=== PATIENT | female | born 1990 | race Caucasian/White ===

== ENCOUNTER 2018-01-05 10:36 | Emergency (ER) | payer SELFPAY ==
[~2018-01-05] VITALS: Ht 152.4 cm; Wt 54.5 kg
[~2018-01-05 10:36] MED LIST: CEPHALEXIN500 M1 PO; FLEXERIL 1010 MG/TAB PO; LORTAB 2.5/5001 TAB PO; LORTAB 5/500 501 TAB PO; MOTRIN 600600 MG/TAB PO; NO HOME MEDICATIONS; NORCO 325 MG-7.1 TAB PO; PRENATAL1 TA1 PO; REGLAN 10MG10 MG/TAB PO
[2018-01-05 10:41] VITALS: BP 131/72; TEMP 97.7
[2018-01-05] MEDS ORDERED: NORCO 325 MG-51 TAB PO (11:08)
[2018-01-05] MEDS ORDERED: AMOXICILLIN 50500 MG PO (11:08)
[2018-01-05] MEDS ORDERED: ZOFRAN 4MG T4 MG/TAB PO (11:08)
[2018-01-05 11:50] VITALS: PULSE 99
== END 2018-01-05 11:54 | disposition home or self-care (01) ==
LOC: COL.ER 10:36
DX: K04.7 Periapical abscess without sinus (principal); F17.210 Nicotine dependence, cigarettes, uncomplicated; Z87.81 Personal history of (healed) traumatic fracture